=== PATIENT | female | born 1990 | race Caucasian/White ===

== ENCOUNTER 2024-01-07 03:08 | Inpatient (IN) | payer MEDICAID, SELFPAY ==
[2024-01-07] VITALS (94 sets, daily range): BP systolic 113–222; BP diastolic 63–133; PULSE 74–100; TEMP 35.5–36.7; BMI 33.0
--- NOTE | 2024-01-07 01:18 | USR_ITS ---
PROCEDURE INFORMATION: Exam: US , Limited Exam date and time: 01/07/2024 2:17 AM Age: 33 years old Clinical indication: Screening exam; Routine US, uterus; Additional info: No care, with chandra. LABS AND CLINICAL REPORTS: Last menstrual period start date: 03/25/2023 Gestational age (Established): 41 w 1 d Estimated due date (Established): 12/30/2023 TECHNIQUE: Imaging protocol: Real-time ultrasound of the maternal uterus with image documentation. Exam focused on the clinical indication. COMPARISON: No relevant prior studies available. FINDINGS: Gestation: Intrauterine gestation. The estimated age is 37 weeks 4 days with KATHRYN of 01/24/2024. heart rate: 148 bpm Placenta: The placenta is posterior. No evidence of abruption. Amniotic fluid index: CHANDRA is 17.58 cm. BIOMETRY: Estimated weight: 3014.92 g. EFW by AC, BPD, FL, HC, Hadlock 1985 Biparietal diameter (BPD): 9.11 cm. EGA (BPD) is 37 w 0 d Head circumference (HC): 34.41 cm. EGA (HC) is 39 w 5 d Abdominal circumference (AC): 31.55 cm. EGA (AC) is 35 w 3 d Femur length (FL): 7.4 cm. EGA (FL) is 37 w 6 d HC/AC: 1.09. (Normal range: 0.91 - 1.05) FL/HC: 21.51. (Normal range: 20.86 - 22.66) FL/BPD: 81.23. (Normal range: 71 - 87) FL/AC: 23.45. (Normal range: 20 - 24) Other findings: Vertex position. US/US OB limited [id number] IMPRESSION: Single full-term live IUP. No acute finding visualized.
[2024-01-07 01:47] LABS: Add Urine Microscopic? NO; Charge for UA Resulting for Rev
[2024-01-07 01:48] LABS: Bilirubin Urine Neg (Negative); Blood Urine Neg (Negative); Glucose Urine UA Norm (Normal); Ketones Urine Negative (Negative); Leukocyte Esterase Urine Negative (Negative); Nitrate Urine Negative (Negative); Protein Urine Neg (Negative); Urine Appearance Clear (CLEAR); Urine Color Yellow (Yellow); Urobilinogen Urine Neg (Negative); pH Urine 7 (5-7)
[2024-01-07 02:01] LABS: Amphetamines Screen Urine Negative (Negative); Barbiturates Screen Urine Negative (Negative); Benzodiazepines Screen Urine Negative (Negative); Cocaine Screen Urine Negative (Negative); Opiate Screen Urine Negative (Negative); PCP Screen Urine Negative (Negative); THC Screen Urine Negative (Negative)
[2024-01-07] MEDS: NIFEdipine 10 mg Capsule PO (02:01)
[2024-01-07 02:04] LABS: Alanine Aminotransferase 13 U/L (0-33); Albumin Level 3.3 g/dL (3.5-5.2); Alkaline Phosphatase 178 U/L (35-105); Blood Urea Nitrogen 12 mg/dL (6-20); Calcium 10.3 mg/dL (8.5-10.5); Carbon Dioxide 21 mmol/L (22-29); Chloride 102 mmol/L (98-107); Globulin 3.8 g/dL (1.3-4.6); Glomerular Filtration Rate 96.4 mL/min (90-130); Glucose 83 mg/dL (65-115); Osmolality Calculated 279 mOsm/kg (285-295); Sodium 135 mmol/L (136-145); Total Bilirubin 0.2 mg/dL (0.15-1.2); Total Protein 7.1 g/dL (6.6-8.7); Uric Acid 5.5 mg/dL (2.4-5.7)
[2024-01-07 02:05] LABS: Anion Gap 16.2 (5-19); Aspartate Amino Transferase 22 U/L (0-32); Potassium 4.2 mmol/L (3.5-5.1)
[2024-01-07 02:06] LABS: Basophils % 0.3 %; Eosinophils # 0.1 10^3/uL (0.0-0.8); Eosinophils % 0.7 %; Hematocrit 43.5 % (36-47); Lymphocytes # 1.8 10^3/uL (0.8-4.8); Lymphocytes % 14.4 %; Mean Corpuscular HGB Conc 33.6 g/dL (30-55); Mean Corpuscular Hemoglobin 31.7 pg (27-33); Mean Corpuscular Volume 94.4 fl (85-98); Mean Platelet Volume 10.7 fL (7.4-10.4); Monocytes # 0.7 10^3/uL (0.2-0.9); Monocytes % 5.6 %; Neutrophils # 9.83 10^3/uL (1.8-7.7); Neutrophils % 78.1 %; Nucleated Red Blood Cells % 0 %; Platelet Count 144 10^3/cmm (157-399); Red Blood Count 4.61 10^6/uL (3.85-5.65); Red Cell Distribution Width 14.7 % (12.1-15.1); White Blood Count 12.58 10^3/uL (3.29-11.43)
[2024-01-07 02:07] LABS: Urine Creatinine 34 mg/dL (28-217); Urine Protein Random 11 mg/dL
[2024-01-07 02:17] LABS: UPRO/UCREAT Ratio 0.32 mg/mg CR
[2024-01-07] MEDS: labetalol 5 mg/mL SDV 20mL 20 MG IVP (02:34)
[2024-01-07] MEDS: labetalol 5 mg/mL SDV 20mL 40 MG IVP (03:01)
[2024-01-07] MEDS: dextrose 5%-lactated ringers 1,000 ML 125 ML IV (04:02)
[2024-01-07] MEDS: magnesium sulfate premix 4 GM/100 ML PREMIX IV (04:02)
[2024-01-07] MEDS: ampicillin 2,000 MG in sodium chloride 0.9% (plus) 50 ML 100 MG IV (04:02)
[2024-01-07] MEDS: magnesium sulfate premix 20 GM/500 ML BAG IV ×2 (04:26→15:29)
[2024-01-07 05:05] LABS: HIV 1 & 2 Antibody Non-Reactive (Non-Reactiv); HIV 1 & 2 Antigen Non-Reactive (Non-Reactiv)
[2024-01-07 05:14] LABS: Rapid Plasma Reagin Syphilis Reactive (Nonreactive)
[2024-01-07 05:40] LABS: Hepatitis C Virus Antibody Reactive (Nonreactive)
[2024-01-07 06:15] LABS: Hepatitis B Surface Antigen Non-Reactive (Nonreactive)
--- NOTE | 2024-01-07 08:00 | PC.NURSE ---
This nurse called [facility] in [place], [place] to request records from previous . Released was signed by pt and faxed to [facility]. Charge nurse reported she would send records via fax. This nurse asked specifically about the patients previous section. The charge nurse reported the pt had a low transverse section on January 12, 2023 at 29 weeks gestation.
[2024-01-07] MEDS: ampicillin 1,000 MG in sodium chloride 0.9% (plus) 50 ML 100 MG IV ×5 (08:25→23:12)
[2024-01-07] MEDS: oxytocin 30 UNIT/500 ML BAG IV (08:30)
--- NOTE | 2024-01-07 09:58 | PM.OBGYHP ---
Providers/Chief Complaint Admitting Physician: Edy Light MD Chief Complaint: No PNC, Uncomfortable HPI DIRECTOR LEARNING History of Present Illness Brisa Pérez is a 33 year old female G2, P1, with an IUP with no care, referring she was feeling uncomfortable. She is unsure of her LMP referring late April early March. She had a previous delivery at 29 weeks last year due to severe preeclampsia of a also with no care. Upon evaluation in triage in labor and delivery the patient was noted with elevated blood pressures in the severe range. Preeclampsia workup confirms preeclampsia. Ultrasound performed reported the estimated age is 37 weeks 4 days with KATHRYN of 01/24/2024. Present Details : 2 Para: 1 Labs Rubella: Immune RPR: Positive GBS: Unknown Review of Systems Narrative: movement: no Const: Denies: fever(s) or chills Card: Denies: chest pain, palpitations, irregular heart rhythm or syncope Resp: Denies: dyspnea GI: Denies: abdominal pain, nausea or vomiting : Denies: flank pain, dysuria, urinary frequency or urinary urgency Musc: Denies: back pain or extremity swelling Skin/Breast: Denies: rash, pruritus, breast pain, nipple discharge or breast mass Neuro: Denies: headache(s), difficulty walking, dizziness or restless legs Psych: Denies: anxiety, depression or mood swings Endo: Denies: polyuria, tired all the time, cold intolerance or heat intolerance Jaime/Lymph: Denies: easy bruising, easy bleeding, petechiae or purpura All/Imm: Denies: urticaria Medications/Allergies Home Medications Medication Instructions Recorded Confirmed Last Taken Type 1 tab PO DAILY 01/07/24 01/07/24 01/06/24 21:00 History Allergies Allergy/AdvReac Type Severity Reaction Status Date / Time diphenhydramine Allergy ALGY-Hives Verified 01/07/24 02:38 [From Benadryl] Vitals/I&O/Wt Last Vital Signs Temp 95.9 F L 01/07/24 01:01 Pulse 84 01/07/24 09:45 BP 146/92 01/07/24 09:45 O2 Del Method Room Air 01/07/24 03:00 01/06/24 01/07/24 01/07/24 22:59 06:59 14:59 Intake Total 75 / 75 150 / 150 Output Total 820 / 820 800 / 800 Balance -745 / -745 -650 / -650 Weight last 48 hrs Weight 79.379 kg Weight 79.379 kg Physical Exam Narrative: GA: Alert and oriented ?3. Lungs: Clear to auscultation bilaterally. Heart: Regular rhythm and rate. Abdomen: Gravid, full the height equals dates, nontender. LIDAR SCIENTIST: SVE; dilation: 0 cm, effacement: 0%, station: -4, presentation: vx, membranes: IM. Extremities: no edema, no cyanosis, no calves pain. heart tracing: Basal rate: 140's bpm, Variability: moderate, Accelerations: present, Decelerations: absent, Contraction: none. Urinary Catheter Management: Nair Latex Free: Cath Placed During This Visit: yes Reason for Continuing Indwelling Catheter: Accurate Measurement of Urinary Output in Critically Ill Patients Urinary Catheter Date of Insertion: 01/07/24 Urinary Catheter Time of Insertion: 03:20 Data 01/07/24 01:58 01/07/24 01:39 Results Labs OB ([facility]): Obstetrics US 01/07/24 Blood Type A Positive 01/07/24 Antibody Screen Negative 01/07/24 Hct 43.5 % (36-47) 01/07/24 Hgb 14.60 g/dL (11.27-16.99) 01/07/24 Rho(D) Type Rh positive 01/07/24 Plt Count 144 10^3/cmm (157-399) L 01/07/24 Hep Bs Antigen Non-reactive (Nonreactive) 01/07/24 Hepatitis C Antibody Reactive (Nonreactive) H 01/07/24 Rubella IgG Antibody 6.0 IU/mL (0.0-10.0) 01/07/24 RPR Reactive (Nonreactive) 01/07/24 HIV 1&2 Ab & HIV 1 Ag Non-reactive (Non-Reactiv) 01/07/24 C.trachomatis RNA (TMA) Pending 01/07/24 N.gonorrhoeae RNA (TMA) Pending 01/07/24 Chlamydia/GC Comment Pending 01/07/24 Uric Acid 5.5 mg/dL (2.4-5.7) 01/07/24 Urine Opiates Screen Negative ng/mL (Negative) 01/07/24 Ur Barbiturates Screen Negative ng/mL (Negative) 01/07/24 Ur Phencyclidine Scrn Negative ng/mL (Negative) 01/07/24 Ur Amphetamines Screen Negative ng/mL (Negative) 01/07/24 U Benzodiazepines Scrn Negative ng/mL (Negative) 01/07/24 Urine Cocaine Screen Negative ng/mL (Negative) 01/07/24 U Marijuana (THC) Screen Negative ng/mL (Negative) 01/07/24 OB Ul[address] [address] Ultrasound Report Signed Patient: Brisa Pérez Unit #: [id number] : 1990 Age/Sex: 33 / F ADM Date: 01/07/24 [facility] Attending Dr: Edy Light MD Ordering Provider/Ordering MD: Edy Light MD Date of Service: 01/07/24 Procedure(s): US OB limited [id number] Accession Number(s): [id number] Report Number: [id number] PROCEDURE INFORMATION: Exam: US , Limited Exam date and time: 01/07/2024 2:17 AM Age: 33 years old Clinical indication: Screening exam; Routine US, uterus; Additional info: No care, with chandra. LABS AND CLINICAL REPORTS: Last menstrual period start date: 03/25/2023 Gestational age (Established): 41 w 1 d Estimated due date (Established): 12/30/2023 TECHNIQUE: Imaging protocol: Real-time ultrasound of the maternal uterus with image documentation. Exam focused on the clinical indication. COMPARISON: No relevant prior studies available. FINDINGS: Gestation: Intrauterine gestation. The estimated age is 37 weeks 4 days with KATHRYN of 01/24/2024. heart rate: 148 bpm Placenta: The placenta is posterior. No evidence of abruption. Amniotic fluid index: CHANDRA is 17.58 cm. BIOMETRY: Estimated weight: 3014.92 g. EFW by AC, BPD, FL, HC, Hadlock 1985 Biparietal diameter (BPD): 9.11 cm. EGA (BPD) is 37 w 0 d Head circumference (HC): 34.41 cm. EGA (HC) is 39 w 5 d Abdominal circumference (AC): 31.55 cm. EGA (AC) is 35 w 3 d Femur length (FL): 7.4 cm. EGA (FL) is 37 w 6 d HC/AC: 1.09. (Normal range: 0.91 - 1.05) FL/HC: 21.51. (Normal range: 20.86 - 22.66) FL/BPD: 81.23. (Normal range: 71 - 87) FL/AC: 23.45. (Normal range: 20 - 24) Other findings: Vertex position. US/ OB limited 12551 IMPRESSION: Single full-term live IUP. No acute finding visualized. Dictated By: Erasmo Burgos MD A&P Assessment and plan (1) No care in current in third trimester: Mrs. Pérez 33-year-old female G2, P1 at approximately 37 weeks 4 days IUP, with severe preeclampsia, hep C and no care. Admitted for induction. heart tracing category 1. Started induction with oxytocin low-dose protocol. Started GBS prophylaxis. Plan to place the double-balloon for cervical dilation as soon it is viable. (2) Pre-eclampsia in third trimester: Patient came to labor and delivery noted to be in severe range preeclampsia. Started on magnesium sulfate for seizure prophylaxis. Treated with labetalol per protocol. (3) History of delivery, currently : The patient refers she does not want to have a repeat delivery. Last delivery was 12 months ago. The patient was counseled about TOLAC/. She wants to try a TOLAC. The decision to have a TOLAC/ is her desicion, and the option of an elective repeat has been discussed with the patient. The risk of a uterine rupture during a TOLAC/ in someone who has had a prior incision on the lower, noncontracting part of my uterus, is around 1%. That vaginal after () is associated with a higher risk of harm to the baby than to the patient. She was informed that if the uterus ruptures during a TOLAC/, there may not be sufficient time to operate and to prevent the of or permanent brain injury to the baby. However a carries a lower risk to patient than does a delivery. (4) Hepatitis C virus infection in mother during : Attestations Medical Necessity Statement*: In my professional opinion per admitting diagnosis. Coding Level of Care Code Acute Code for Chg Fwd Diagnoses No care in current in third trimester O09.33 Pre-eclampsia in third trimester O14.93 History of delivery, currently O34.219 Hepatitis C virus infection in mother during O98.419; B19.20
[2024-01-07 10:40] LABS: Magnesium Level (OB Only) 4.3 mg/dL (5.0-7.5)
--- NOTE | 2024-01-07 10:41 | PC.NURSE ---
Dr. Light have verbal orders to only call if magnesium level is greater then 8.
[2024-01-07] MEDS: acetaminophen 325 mg Tablet 650 MG PO (13:05)
[2024-01-07 16:38] LABS: Magnesium Level (OB Only) 2.7 mg/dL (5.0-7.5)
[2024-01-07 17:33] LABS: Magnesium Level (OB Only) 5.1 mg/dL (5.0-7.5)
[2024-01-07] MEDS: acetaminophen 500 mg Tablet 1000 MG PO (17:48)
--- NOTE | 2024-01-07 18:14 | PC.NURSE ---
suspected diluted sample. New sample was collected and results were WNL
[2024-01-07] MEDS: ondansetron 2 mg/ML SDV 2 mL 4 MG IVP (18:22)
[2024-01-07] MEDS: dextrose 5%-lactated ringers 1,000 ML 75 ML IV (19:43)
[2024-01-07 22:27] LABS: Magnesium Level (OB Only) 5.4 mg/dL (5.0-7.5)
[2024-01-08] VITALS (118 sets, daily range): BP systolic 128–172; BP diastolic 61–103; PULSE 71–103; TEMP 36.8–42.2; O2SAT 83–100
[2024-01-08] MEDS: acetaminophen 325 mg Tablet 650 MG PO ×4 (00:05→18:36)
[2024-01-08] MEDS: ondansetron 2 mg/ML SDV 2 mL 4 MG IVP ×4 (00:08→18:35)
[2024-01-08] MEDS: magnesium sulfate premix 20 GM/500 ML BAG IV ×3 (01:35→20:08)
[2024-01-08 04:20] LABS: Magnesium Level (OB Only) 5.9 mg/dL (5.0-7.5)
[2024-01-08] MEDS: ampicillin 1,000 MG in sodium chloride 0.9% (plus) 50 ML 100 MG IV ×4 (06:34→18:36)
[2024-01-08] MEDS: oxytocin 30 UNIT/500 ML BAG 10 UNIT IV (08:15)
[2024-01-08] MEDS: dextrose 5%-lactated ringers 1,000 ML 115 ML IV (08:41)
--- NOTE | 2024-01-08 09:36 | PC.NURSE ---
This nurse attempted to draw magnesium level from both peripheral IVs without success at 0900. JOSE Melchor, also attempted to draw without success. This nurse stuck patient twice without success. This nurse called lab for assistance at 0935.
[2024-01-08 10:19] LABS: Magnesium Level (OB Only) 6.1 mg/dL (5.0-7.5)
--- NOTE | 2024-01-08 12:40 | PC.NURSE ---
Patient requested medication for headache. Pt was given two tablets of Tylenol. After swallowing both tablets, patient became sick and vomited. One tablet was visualized in the basin by this nurse. Zofran was administered and one additional tablet of Tylenol was given to patient.
[2024-01-08] MEDS: labetalol 5 mg/mL SDV 20mL 20 MG IVP (13:07)
--- NOTE | 2024-01-08 13:38 | PC.NURSE ---
Temperature taken with temporal artery scanner. First attempt resulted in error. Second attempt resulted in 108.0. This nurse took temperature orally with result of 98.3.
--- NOTE | 2024-01-08 15:42 | PC.NURSE ---
This nurse called lab to request them to draw patient's magnesium level.
--- NOTE | 2024-01-08 16:32 | PC.NURSE ---
This nurse called lab again to come draw magnesium.
--- NOTE | 2024-01-08 18:20 | PC.NURSE ---
Dr Silva notified of critical magnesium level 6.3 called to RN. pt is receiving mag sulfate for pre eclampsia. per Dr Silva 6.3 is WNL for therapy, no new orders received
[2024-01-08 18:56] LABS: Magnesium Level (OB Only) 6.3 mg/dL (5.0-7.5)
--- NOTE | 2024-01-08 19:05 | PM.OBGYPN ---
FOOD SERVICE COORDINATOR Subjective Subjective: Interval history: 33 y.o. Patient with no care At approximately 37 weeks by ultrasound done yesterday on admission h/o previous low-transverse at 29 weeks for severe preeclampsia admitted yesterday with significantly elevated BPs on Pitocin for induction of labor presently c/o severe headache on MgSO4 2 gms/h BPs in 150-160 / 95-105 range Cervix: closed / long Patient with preeclampsia with severe features Cervix remote from delivery h/o previous would recommend repeat now for delivery I discussed my recommendation, along with procedure and risks of surgery, with patient and her Risks include, but not limited to, infection, bleeding, injury to internal organs, anesthesia, blood transfusions patient understands and wants to proceed plan proceed to for delivery Labor: Station: -3 Amniotic Membrane Status: Intact Monitor Mode: Palpation Contraction Pattern: Irregular Vitals/I&O/Wt Last Vital Signs Temp 98.2 F 01/09/24 05:24 Pulse 75 01/09/24 06:43 Resp 16 01/09/24 05:24 BP 135/85 01/09/24 06:28 Pulse Ox 99 01/09/24 06:43 O2 Del Method Room Air 01/09/24 05:24 01/08/24 01/08/24 01/09/24 14:59 22:59 06:59 Intake Total 1977.082 / 1862.881 3456.734 / 3395.816 2226.433 / 5622.249 Output Total 1750 / 1750 675 / 2425 1305 / 3730 Balance 228.082 / 228.082 742.734 / 970.816 921.433 / 1892.249 Physical Exam Urinary Catheter Management: Nair Latex Free: Cath Placed During This Visit: yes Reason for Continuing Indwelling Catheter: Accurate Measurement of Urinary Output in Critically Ill Patients Urinary Catheter Date of Insertion: 01/07/24 Urinary Catheter Time of Insertion: 03:20 Data 01/08/24 21:45 01/07/24 01:39 A&P Assessment and plan (1) No care in current in third trimester: (2) Pre-eclampsia in third trimester: (3) History of delivery, currently : (4) Hepatitis C virus infection in mother during : Attestations Medical Necessity Statement*: patient with preeclampsia with severe features, plan proceed to for delivery Coding Level of Care Code Acute Code for Chg Fwd Diagnoses No care in current in third trimester O09.33 Pre-eclampsia in third trimester O14.93 History of delivery, currently O34.219 Hepatitis C virus infection in mother during O98.419; B19.20 Time Spent (min) 60
[2024-01-08] MEDS: dextrose 5%-lactated ringers 1,000 ML 94 ML IV ×2 (19:38→23:13)
--- NOTE | 2024-01-08 20:00 | P.ANESASSM_ITS ---
Pre-Anesthetic Assessment Height/Weight: Height 1.55 m Weight 79.379 kg Temp Pulse BP O2 Del Method 98.3 F 85 141/82 Room Air 01/08/24 13:37 01/08/24 19:54 01/08/24 19:54 01/07/24 03:00 Preop Diagnosis: IUP Operation Date: 01/08/24 20:40 Proposed Procedures p Section Repeat(Not Applicable) - Triston Silva MD Familial anesthetic complications: none Was Beta Heriberto taken within 24 hours: N/A Was Clonidine taken within 24 hours: N/A Social Tobacco and No alcohol .5-1 ppd pack(s) per day Exam alert and oriented x 3 Airway Submandibular: within normal limits Cervical ROM: within normal limits Mallampati: Class I Dentition: full Comments: Comments: poor dentition-pt reports none are loose Pulmonary None reported CV/HEM Hypertension (160s, not on daily medications. HTN with as well.) None reported Hepatic Hepatitis (hep C) GI Gastroesophageal Reflux Disease [facility] None reported Neuropsych None reported Anesthetic Plan ASA status: 3 Anesthesia: Anesthesia Evaluation and Regional (specify below) Other: spinal Risk of > 500 ml blood loss (7ml/kg in children): Yes, adequate IV access and fluids planned Medications/Allergies Home Medications Medication Instructions Recorded Confirmed Last Taken Type 1 tab PO DAILY 01/07/24 01/07/24 01/06/24 21:00 History Allergies Allergy/AdvReac Type Severity Reaction Status Date / Time diphenhydramine Allergy ALGY-Hives Verified 01/07/24 02:38 [From Benadryl] Current Medications Generic Name Dose Route Start Last Admin Trade Name Howardq PRN Reason Stop Dose Admin Acetaminophen 650 mg 01/07/24 02:58 01/08/24 18:36 Acetaminophen 325 Mg Tablet PO 650 mg Q6H PRN Administration Mild pain or temp > 100.4 Magnesium Sulfate 20 gm in 500 mls @ 50 mls/hr 01/07/24 03:00 01/08/24 20:08 Magnesium Sulfate Premix IV 50 mls/hr .Q10H DIANE Administration Dextrose/Lactated Ringer's 1,000 mls @ 125 mls/hr 01/07/24 03:00 01/08/24 19:38 Dextrose 5%-Lactated Ringers IV 94 mls/hr .Q8H DIANE Administration Ampicillin Sodium 1,000 mg/ 50 mls @ 100 mls/hr 01/07/24 07:00 01/08/24 20:09 Sodium Chloride IV Infused Q4H DIANE Infusion Protocol Oxytocin 30 unit in 500 mls @ 1 mls/hr 01/08/24 08:15 01/08/24 18:45 Pitocin IV 32 milliunit/min .Q24H DIANE 32 mls/hr Titration Protocol 1 MILLIUNIT/MIN Labetalol HCl 20 mg 01/07/24 01:43 01/08/24 13:07 Labetalol 5 Mg/Ml Sdv 20ml IVP 20 mg PRN PRN Administration HYPERTENSION Protocol Labetalol HCl 40 mg 01/07/24 01:43 01/07/24 03:01 Labetalol 5 Mg/Ml Sdv 20ml IVP 40 mg PRN PRN Administration HYPERTENSION Protocol Nifedipine 10 mg 01/07/24 01:43 01/07/24 02:01 Nifedipine 10 Mg Capsule PO 10 mg PRN PRN Administration HYPERTENSION Ondansetron HCl 4 mg 01/07/24 02:58 01/08/24 18:35 Ondansetron 2 Mg/Ml Sdv 2 Ml IVP 4 mg Q4H PRN Administration NAUSEA AND VOMITING PFSH Anesthesia Female Reproductive History : 2 Data Anesthesia 01/07/24 01:58 01/07/24 01:39 Short CBC 01/07/24 Range/Units 01:58 WBC 12.58 H (3.29-11.43) 10^3/uL Hgb 14.60 (11.27-16.99) g/dL Hct 43.5 (36-47) % MCV 94.4 (85-98) fl Plt Count 144 L (157-399) 10^3/cmm Neut % (Auto) 78.1 % Neut # (Auto) 9.83 H (1.8-7.7) 10^3/uL BMP 01/07/24 01:39 Sodium 135 L Potassium 4.2 Chloride 102 Carbon Dioxide 21 L BUN 12 Creatinine 0.7 Glucose 83 Calcium 10.3 Liver Function 01/07/24 Range/Units 01:39 Total Bilirubin 0.2 (0.15-1.2) mg/dL AST 22 (0-32) U/L ALT 13 (0-33) U/L Alkaline Phosphatase 178 H (35-105) U/L Albumin 3.3 L (3.5-5.2) g/dL Urine 01/07/24 Range/Units 01:39 Urine Color Yellow (Yellow) Urine Appearance Clear (CLEAR) Urine pH 7 (5-7) Ur Specific [place] 1.000 L (1.005-1.030) Urine Protein Neg (Negative) Urine Glucose (UA) Norm (Normal) Urine Ketones Negative (Negative) Urine Nitrate Negative (Negative) Urine Bilirubin Neg (Negative) Ur Leukocyte Esterase Negative (Negative) Blood Bank 01/07/24 01:58 Blood Type A Positive Rho(D) Type Rh positive Antibody Screen Negative Cardiac Studies: 2 No Data to Display
[2024-01-08] MEDS: metoclopramide 5 mg/mL SDV 2 mL 10 MG IVP (20:04)
[2024-01-08] MEDS: famotidine 20 mg/2 mL INJ IVP (20:04)
[2024-01-08] MEDS: citric acid-sodium citrate 30 mL UDC PO (20:04)
--- NOTE | 2024-01-08 21:15 | PM.OP ---
Operative Report Date of procedure: January 08, 2024 Pre-op diagnosis: No care Approximately 37 weeks gestation Previous Preeclampsia with severe features Cervix long and closed, remote from delivery Post-op diagnosis: Same as above Partial dehiscence of previous scar evident Bulging membranes seen at site of previous Post-op findings: 6 cm defect of scar seen at opening of abdomen With membranes bulging through previous scar Vigorous female Normal placenta and cord Normal uterus, tubes, and ovaries Bleeding sinus in posterior wall of uterus, repaired Procedure done: Repeat low-transverse Implants: none Specimens removed/disposition: placenta and cord, discarded Surgeon: Triston Silva MD Anesthesia: Spinal Estimated blood loss (mL): 1,800 Complications: none Condition: stable Disposition: floor Brief History: No care Approximately 37 weeks gestation Previous Preeclampsia with severe features Cervix long and closed, remote from delivery Procedure: Informed consent signed. Patient was taken to the operating room, placed supine in the left lateral tilt position. Spinal anesthesia and a Nair catheter were already placed. The abdomen was prepped and draped in the usual sterile fashion. A Pfannenstiel incision was made over an old scar and carried down through skin and subcutaneous tissue and fascia. The fascial incision was extended laterally with Pang scissors. The fascia was from the underlying rectus muscles. The rectus muscles were split in the midline. The peritoneum was entered bluntly avoiding underlying organs. On entering the peritoneal cavity, a 6 cm defect in the previous c-s scar can be seen with bulging membranes. The low transverse uterine opening was extended manually. Clear amniotic fluid was seen. The baby was delivered in cephalic presentation atraumatically. The baby was suctioned. The cord was clamped and cut and the baby was handed to an awaiting watch and clock maker and repairer. Cord blood was obtained. The placenta was manually removed intact. A bleeding sinus can be seen on the posterior wall of the uterus with brisk bleeding noted. Bleeding was controlled using a figure of 8 stitch of O-chromic. The uterine cavity was bluntly curetted with wet laps. The uterine incision was then closed with a continuous interlocking stitich of O chromic. Adequate hemostasis was seen. No bleeding was seen. The uterine incision was again inspected and found to have good hemostasis. The fascia was then closed with a continuous stitch of O-Vicryl. Additional interrupted stitches of O-Vicryl were used for fascial closure. The subcutaneous tissue was irrigated and inspected for hemostasis. The skin was then reapproximated using Insorb sarah. Postoperative condition stable Disposition to recovery room Estimated blood loss 1,800 cc, no replacement Sponge, needle, and instrument counts were correct x two There were no complications
[2024-01-08] MEDS: carboprost tromethamine 250 mcg/mL Amp IM (21:35)
[2024-01-08 21:57] LABS: Hematocrit 33.6 % (36-47); Mean Corpuscular HGB Conc 32.7 g/dL (30-55); Mean Corpuscular Hemoglobin 31.3 pg (27-33); Mean Corpuscular Volume 95.7 fl (85-98); Mean Platelet Volume 10.7 fL (7.4-10.4); Platelet Count 143 10^3/cmm (157-399); Red Blood Count 3.51 10^6/uL (3.85-5.65); Red Cell Distribution Width 15.1 % (12.1-15.1); White Blood Count 10.11 10^3/uL (3.29-11.43)
[2024-01-08] MEDS: oxytocin 30 UNIT/500 ML BAG 32 UNIT IV (23:13)
[2024-01-09] VITALS (230 sets, daily range): BP systolic 128–155; BP diastolic 76–99; PULSE 67–96; RESP 16; TEMP 36.1–37.1; O2SAT 92–100
[2024-01-09] MEDS: ketorolac 30 mg/mL INJ IVP ×3 (04:01→16:07)
[2024-01-09] MEDS: simethicone 80 mg Chew PO ×2 (04:01→22:15)
--- NOTE | 2024-01-09 04:57 | PC.NURSE ---
01/07/242099-MD GAVE ORDERS TO INCREASE PITOCIN LIMIT OF 20 UP TO 35. DID NOT INCREASE AT THIS TIME DUE TO CONTRACTIONS IN SETS OF 3 AND 4 WITHOUT A GOOD BASELINE RETURN, NO RESTING TONE INBETWEEN CONTRACTIONS 2129-INCREASED PITOCIN TO 21 2199-HELD PITOCIN AT 21,DUE TO VARRIABILITY BEING NEAR MINIMAL AND CONTRACTION PATTERN CONTINUING BEFORE 2229-WENT TO INCREASE PITOCIN DUE TO STRIP IMPROVEMENT AND START AMPICILLIN,WHILE GRABBING SUPPLIES TO DO SO DR CRUZ ARRIVED TO UNIT AND OBSERVED PITOCIN AT 21. OPON OBSERVING THIS HE ORDERED PITOCIN TO BE SHUT OFF. PITOCIN INFUSION WAS THEN STOPPED.
[2024-01-09 09:00] LABS: Hematocrit 32.2 % (36-47); Mean Corpuscular HGB Conc 32.9 g/dL (30-55); Mean Corpuscular Hemoglobin 31.8 pg (27-33); Mean Corpuscular Volume 96.7 fl (85-98); Mean Platelet Volume 11.2 fL (7.4-10.4); Platelet Count 80 10^3/cmm (157-399); Red Blood Count 3.33 10^6/uL (3.85-5.65); Red Cell Distribution Width 15.1 % (12.1-15.1); White Blood Count 7.69 10^3/uL (3.29-11.43)
[2024-01-09] MEDS: PRENATAL VIT NO.130/IRON/FOLIC 1 EACH TABLET PO (10:06)
[2024-01-09] MEDS: ferrous sulfate EC 325 mg Tablet PO ×2 (10:06→18:21)
[2024-01-09] MEDS: docusate sodium 100 mg Capsule PO ×2 (10:06→18:21)
[2024-01-09] MEDS: magnesium sulfate premix 20 GM/500 ML BAG IV (11:44)
[2024-01-09 11:50] LABS: RPR w(Moniotor) w/REFL Titer REACTIVE (NON-REACTIVE)
--- NOTE | 2024-01-09 15:35 | P.PN_ITS ---
ELECTRONIC TECHNICIAN Subjective 2 Subjective: Interval history: Feels tired Mild incisional pain No bleeding No nausea, vomiting No headaches, blurry vision Labor: Station: -3 Amniotic Membrane Status: Intact Monitor Mode: Palpation Contraction Pattern: Irregular Vitals/I&O/Wt Last Vital Signs Temp 98.2 F 01/10/24 20:39 Pulse 85 01/11/24 02:03 Resp 16 01/10/24 20:39 BP 156/92 01/11/24 02:03 Pulse Ox 98 01/10/24 20:39 O2 Del Method Room Air 01/10/24 20:39 Physical Exam 2 Narrative: Comfortable, awake, alert, appropriate Afebrile BPs Lungs: clear Cor: RRR Abd: soft, nontender Wound clean and dry Ext: no edema Urinary Catheter Management: Nair Latex Free: Cath Placed During This Visit: yes, but has since been removed by the nurse Reason for Continuing Indwelling Catheter: Decision to DC Catheter Urinary Catheter Date of Insertion: 01/07/24 Urinary Catheter Time of Insertion: 03:20 Date Urinary Catheter Removed: 01/09/24 Time Urinary Catheter Discontinued: 21:57 Data 01/09/24 20:10 01/07/24 01:39 A&P Assessment and plan (1) S/P : POD #1 s/p repeat for No care Approximately 37 weeks gestation Preeclampsia with severe features previous cervix remote from delivery Continue postop and care (2) Hypertension: Patient?s BPs are labile, which is to be expected in the setting of severe preeclampsia Patient is otherwise asymptomatic. No c/o headaches, blurry vision, swelling Patient on Procardia 30 mg XL one PO BID Can discontinue MgSO4 Continue to follow clinically Attestations 2 Medical Necessity Statement*: patient s/p , for postop care Coding Level of Care Code Acute Code for Chg Fwd Diagnoses S/P Z98.891 Hypertension I10 Time Spent (min) 30
--- NOTE | 2024-01-09 16:32 | PC.NURSE ---
Dr. Silva at bedside. Orders given to d/c magnesium and d/c pike. Pt may have regular diet. Keep IV saline lock; redraw CBC at 1999.
[2024-01-09 18:00] LABS: Chlamydia Trachomatis RNA TMA NOT DETECTED (NOT DETECTED); Neisseria Gonorrhoeae RNA, TMA NOT DETECTED (NOT DETECTED)
[2024-01-09 20:38] LABS: Basophils % 0.4 %; Eosinophils # 0.1 10^3/uL (0.0-0.8); Eosinophils % 0.7 %; Hematocrit 29.7 % (36-47); Lymphocytes # 1.1 10^3/uL (0.8-4.8); Lymphocytes % 13.7 %; Mean Corpuscular HGB Conc 32.7 g/dL (30-55); Mean Corpuscular Hemoglobin 31.6 pg (27-33); Mean Corpuscular Volume 96.7 fl (85-98); Mean Platelet Volume 10.5 fL (7.4-10.4); Monocytes # 0.5 10^3/uL (0.2-0.9); Monocytes % 6.7 %; Neutrophils # 6.33 10^3/uL (1.8-7.7); Nucleated Red Blood Cells % 0 %; Platelet Count 152 10^3/cmm (157-399); Red Blood Count 3.07 10^6/uL (3.85-5.65); Red Cell Distribution Width 15.2 % (12.1-15.1); White Blood Count 8.11 10^3/uL (3.29-11.43)
[2024-01-09] MEDS: HYDROcodone-acetaminophen 5-325 mg Tablet PO (22:21)
[2024-01-10] VITALS (24 sets, daily range): BP systolic 132–198; BP diastolic 81–105; PULSE 75–98; RESP 16–18; TEMP 36.8–36.9; O2SAT 98
[2024-01-10] MEDS: HYDROcodone-acetaminophen 5-325 mg Tablet PO ×4 (03:17→16:11)
[2024-01-10] MEDS: labetalol 5 mg/mL SDV 20mL 20 MG IVP (04:48)
[2024-01-10] MEDS: NIFEdipine ER (24 hr) 30 mg Tablet PO ×2 (06:22→17:29)
[2024-01-10] MEDS: ferrous sulfate EC 325 mg Tablet PO ×2 (07:18→16:10)
[2024-01-10] MEDS: PRENATAL VIT NO.130/IRON/FOLIC 1 EACH TABLET PO (07:18)
[2024-01-10] MEDS: docusate sodium 100 mg Capsule PO ×2 (07:19→16:10)
[2024-01-10] MEDS: ibuprofen 800 mg tablet PO ×3 (07:19→20:44)
[2024-01-10 13:25] LABS: HEP C RNA Viral Load Quant <1.18 NOT DETECTED Log IU/mL (NOT DETECTED); HEP C RNA Viral Load Quant <15 NOT DETECTED IU/mL (NOT DETECTED)
--- NOTE | 2024-01-10 17:05 | P.PN_ITS ---
REGIONAL MARKETING MANAGER Subjective 2 Subjective: Interval history: No c/o Mild incisional pain No bleeding Eating, voiding, ambulating well No nausea, vomiting No headaches, blurry vision Labor: Station: -3 Amniotic Membrane Status: Intact Monitor Mode: Palpation Contraction Pattern: Irregular Vitals/I&O/Wt Last Vital Signs Temp 98.2 F 01/10/24 20:39 Pulse 85 01/11/24 02:03 Resp 16 01/10/24 20:39 BP 156/92 01/11/24 02:03 Pulse Ox 98 01/10/24 20:39 O2 Del Method Room Air 01/10/24 20:39 Physical Exam 2 Narrative: Comfortable, awake, alert, appropriate Afebrile BPs Lungs: clear Cor: RRR Abd: soft, nontender Wound clean and dry Ext: no edema Urinary Catheter Management: Nair Latex Free: Cath Placed During This Visit: yes, but has since been removed by the nurse Reason for Continuing Indwelling Catheter: Decision to DC Catheter Urinary Catheter Date of Insertion: 01/07/24 Urinary Catheter Time of Insertion: 03:20 Date Urinary Catheter Removed: 01/09/24 Time Urinary Catheter Discontinued: 21:57 Data 01/09/24 20:10 01/07/24 01:39 A&P Assessment and plan (1) S/P : POD #2 s/p repeat for Continue postop and care (2) Hypertension: Patient?s BPs are labile, which is to be expected in the setting of severe preeclampsia Patient is otherwise asymptomatic. No c/o headaches, blurry vision, swelling Patient on Procardia 30 mg XL one PO BID Continue to follow clinically Attestations 2 Medical Necessity Statement*: patient s/p , for postop and care Coding Level of Care Code Acute Code for Chg Fwd Diagnoses S/P Z98.891 Hypertension I10 Time Spent (min) 30
[2024-01-11] VITALS (14 sets, daily range): BP systolic 140–175; BP diastolic 80–106; PULSE 72–110; RESP 16; TEMP 36.7–37.2; O2SAT 97
--- NOTE | 2024-01-11 01:39 | PC.NURSE ---
This nurse placed call to Dr. Silva 01/10/24 at 4 to notify of severe pressures. Orders recieved to monitor every 4 hours. Due to severe pressures this nurse will be monitoring pressures q 15 min until severes resolve. Dr. Silva did not order any new medications at this time as patient had received pericardia xl at 1700.
--- NOTE | 2024-01-11 01:50 | P.PN_ITS ---
COMPANY MARKER Subjective 2 Subjective: Interval history: Called for elevated BPs Patient with labile BPs No c/o headache, blurry vision, abdominal pain, swelling No bleeding states feels well eating, voiding, ambulating Labor: Station: -3 Amniotic Membrane Status: Intact Monitor Mode: Palpation Contraction Pattern: Irregular Vitals/I&O/Wt Last Vital Signs Temp 98.2 F 01/10/24 20:39 Pulse 85 01/11/24 02:03 Resp 16 01/10/24 20:39 BP 156/92 01/11/24 02:03 Pulse Ox 98 01/10/24 20:39 O2 Del Method Room Air 01/10/24 20:39 Physical Exam 2 Narrative: Comfortable, awake, alert HEENT: normal Lungs: clear Cor: RRR Abd: soft, nontender Ext: no edema Urinary Catheter Management: Nair Latex Free: Cath Placed During This Visit: yes, but has since been removed by the nurse Reason for Continuing Indwelling Catheter: Decision to DC Catheter Urinary Catheter Date of Insertion: 01/07/24 Urinary Catheter Time of Insertion: 03:20 Date Urinary Catheter Removed: 01/09/24 Time Urinary Catheter Discontinued: 21:57 Data 01/09/24 20:10 01/07/24 01:39 A&P Assessment and plan (1) S/P : POD #3 s/p repeat (2) Hypertension: Patient?s BPs are labile, which is to be expected in the setting of severe preeclampsia Patient is otherwise asymptomatic. No c/o headaches, blurry vision, swelling Patient on Procardia 30 mg XL one PO BID Will add metoprolol 25 mg PO BID Will recheck CBC with platelets in the morning Continue to follow clinically Attestations 2 Medical Necessity Statement*: patient s/p , severe preeclampsia, hypertension, for postop and care Coding Level of Care Code Acute Code for Chg Fwd Diagnoses S/P Z98.891 Hypertension I10 Time Spent (min) 60
[2024-01-11] MEDS: acetaminophen 325 mg Tablet 650 MG PO (02:14)
[2024-01-11] MEDS: HYDROcodone-acetaminophen 5-325 mg Tablet PO ×2 (08:07→17:29)
[2024-01-11] MEDS: PRENATAL VIT NO.130/IRON/FOLIC 1 EACH TABLET PO (08:07)
[2024-01-11] MEDS: ferrous sulfate EC 325 mg Tablet PO ×2 (08:07→17:29)
[2024-01-11] MEDS: NIFEdipine ER (24 hr) 30 mg Tablet PO ×2 (08:07→17:31)
[2024-01-11] MEDS: docusate sodium 100 mg Capsule PO ×2 (08:08→17:29)
[2024-01-11] MEDS: metoprolol tartrate 25 mg Tablet PO ×2 (08:08→17:32)
[2024-01-11] MEDS: ibuprofen 800 mg tablet PO ×2 (08:09→16:14)
[2024-01-11] MEDS: penicillin g (L-A) 1,200,000 unit/2 mL Syr 2400000 UNIT IM (10:31)
--- NOTE | 2024-01-11 12:40 | PM.OBGYPN ---
RETURNED TELEPHONE EQUIPMENT APPRAISER Subjective Subjective: Interval history: No c/o Mild incisional pain, relieved with pain meds No bleeding Eating, voiding, ambulating well No nausea, vomiting No headaches, blurry vision Labor: Station: -3 Amniotic Membrane Status: Intact Monitor Mode: Palpation Contraction Pattern: Irregular Vitals/I&O/Wt Last Vital Signs Temp 98.1 F 01/11/24 17:35 Pulse 110 H 01/11/24 17:35 Resp 16 01/11/24 17:35 BP 156/101 01/11/24 17:35 Pulse Ox 97 01/11/24 04:00 O2 Del Method Room Air 01/11/24 04:00 Physical Exam Narrative: Comfortable, awake, alert, appropriate Afebrile BPs Lungs: clear Cor: RRR Abd: soft, nontender Wound healing well Ext: no edema Urinary Catheter Management: Nair Latex Free: Cath Placed During This Visit: yes, but has since been removed by the nurse Reason for Continuing Indwelling Catheter: Decision to DC Catheter Urinary Catheter Date of Insertion: 01/07/24 Urinary Catheter Time of Insertion: 03:20 Date Urinary Catheter Removed: 01/09/24 Time Urinary Catheter Discontinued: 21:57 Data 01/09/24 20:10 01/07/24 01:39 A&P Assessment and plan (1) S/P : POD #3 s/p repeat Doing well Plan discharge to home today instructions and precautions given call/return if fever, chills, nausea, vomiting, headaches, abdominal pain, bleeding, inability to void, swelling, leg pain; feelings of depression or mood changes; wound redness, swelling, or discharge f/u in January 16, 2024 (2) Hypertension: Patient?s BPs are labile, which is to be expected in the setting of severe preeclampsia Patient may also have undiagnosed chronic hypertension Patient is otherwise asymptomatic. No c/o headaches, blurry vision, swelling Patient on Procardia 30 mg XL one PO BID Plan discharge on Procardia and metoprolol Continue to follow clinically Return to clinic for BP check on January 16, 2024 Attestations Medical Necessity Statement*: patient s/p , plan to discharge to home today Coding Level of Care Code Acute Code for Chg Fwd Diagnoses S/P Z98.891 Hypertension I10 Time Spent (min) 40
--- NOTE | 2024-01-11 13:40 | PM.OBGYDC ---
Discharge Providers SHREDDER PICKER Date of Admission: 01/07/24 03:08 Date of Discharge: 01/11/24 Attending Provider at Admission: Edy Light MD Attending Provider at Discharge: Triston Silva MD Consults: none Primary SHREDDER PICKER: none Primary Care Provider: none Diagnoses at Discharge Discharge Diagnosis (1) S/P : Details from hospital stay: 33 y.o. no care presented to [facility] L&D c/o headaches and contractions patient was found to be approximately 37 weeks by ultrasound also noted to have significantly elevated BPs c/w severe preeclampsia MgSO4 was started patient has history of previous at 29 weeks for preeclampsia She was started on labor induction On January 08, 2024, approximately 1905, patient was c/o severe headache with elevated BPs Her cervical exam was long and closed, remote from delivery It was decided to proceed with for delivery At the time of repeat , a 6 cm uterine scar dehiscence was noted with bulging bag of water through the dehiscence baby was delivered in good condition patient had approximately 1,500 cc blood loss due to a bleeding venous sinus from the posterior uterine wall, repaired patient did well postoperatively She did have labile blood pressures treated with Procardia and metoprolol She was asymptomatic with no headaches, blurry vision or swelling patient was discharged on the third postoperative day. Status: Acute (2) Hypertension: Details from hospital stay: see above Status: Acute Reason for Visit Reason for Visit: No PNC, Uncomfortable Brief History: see above Hospital Course Hospital Course see above Information Peripartum Data: Infant Delivery Method: complications: none Additional Peripartum Information: elevated BPs, managed with antihypertensives Physical Exam Narrative: Comfortable, awake, alert, appropriate Afebrile BPs Lungs: clear Cor: RRR Abd: soft, nontender Wound healing well Ext: no edema Urinary Catheter Management: Nair Latex Free: Cath Placed During This Visit: yes, but has since been removed by the nurse Reason for Continuing Indwelling Catheter: Decision to DC Catheter Urinary Catheter Date of Insertion: 01/07/24 Urinary Catheter Time of Insertion: 03:20 Date Urinary Catheter Removed: 01/09/24 Time Urinary Catheter Discontinued: 21:57 Discharge Data Studies Completed and Pending Completed Studies During Hospitalization Category Date Time Status US OB limited [id number] Stat Ultrasound 01/07/24 01:18 Completed Radiology Impressions Obstetrics Ultrasound 01/07/24 01:18 IMPRESSION: Single full-term live IUP. No acute finding visualized. Laboratory Results WBC 8.11 10^3/uL (3.29-11.43) 01/09/24 20:10 RBC 3.07 10^6/uL (3.85-5.65) L 01/09/24 20:10 Hgb 9.70 g/dL (11.27-16.99) L 01/09/24 20:10 Hct 29.7 % (36-47) L 01/09/24 20:10 MCV 96.7 fl (85-98) 01/09/24 20:10 MCH 31.6 pg (27-33) 01/09/24 20:10 MCHC 32.7 g/dL (30-55) 01/09/24 20:10 RDW 15.2 % (12.1-15.1) H 01/09/24 20:10 Plt Count 152 10^3/cmm (157-399) L D 01/09/24 20:10 MPV 10.5 fL (7.4-10.4) H 01/09/24 20:10 Neut % (Auto) 78.0 % 01/09/24 20:10 Lymph % (Auto) 13.7 % 01/09/24 20:10 [place] % (Auto) 6.7 % 01/09/24 20:10 Eos % (Auto) 0.7 % 01/09/24 20:10 Baso % (Auto) 0.4 % 01/09/24 20:10 Neut # (Auto) 6.33 10^3/uL (1.8-7.7) 01/09/24 20:10 Lymph # (Auto) 1.1 10^3/uL (0.8-4.8) 01/09/24 20:10 [place] # (Auto) 0.5 10^3/uL (0.2-0.9) 01/09/24 20:10 Eos # (Auto) 0.1 10^3/uL (0.0-0.8) 01/09/24 20:10 Baso # (Auto) 0.0 10^3/uL (0.0-0.1) 01/09/24 20:10 Nucleated RBC % (auto) 0 % 01/09/24 20:10 Nucleated RBCs # 0.0 /100WBC 01/09/24 20:10 Sodium 135 mmol/L (136-145) L 01/07/24 01:39 Potassium 4.2 mmol/L (3.5-5.1) 01/07/24 01:39 Chloride 102 mmol/L (98-107) 01/07/24 01:39 Carbon Dioxide 21 mmol/L (22-29) L 01/07/24 01:39 Anion Gap 16.2 (5-19) 01/07/24 01:39 BUN 12 mg/dL (6-20) 01/07/24 01:39 Creatinine 0.7 mg/dL (0.5-0.9) 01/07/24 01:39 GFR Calculation 96.4 mL/min (90-130) 01/07/24 01:39 Glucose 83 mg/dL (65-115) 01/07/24 01:39 Calculated Osmolality 279 mOsm/kg (285-295) L 01/07/24 01:39 Uric Acid 5.5 mg/dL (2.4-5.7) 01/07/24 01:39 Calcium 10.3 mg/dL (8.5-10.5) 01/07/24 01:39 Magnesium Cancelled 01/08/24 17:30 Total Bilirubin 0.2 mg/dL (0.15-1.2) 01/07/24 01:39 AST 22 U/L (0-32) 01/07/24 01:39 ALT 13 U/L (0-33) 01/07/24 01:39 Alkaline Phosphatase 178 U/L (35-105) H 01/07/24 01:39 Total Protein 7.1 g/dL (6.6-8.7) 01/07/24 01:39 Albumin 3.3 g/dL (3.5-5.2) L 01/07/24 01:39 Globulin 3.8 g/dL (1.3-4.6) 01/07/24 01:39 Urine Color Yellow (Yellow) 01/07/24 01:39 Urine Appearance Clear (CLEAR) 01/07/24 01:39 Urine pH 7 (5-7) 01/07/24 01:39 Ur Specific [place] 1.000 (1.005-1.030) L 01/07/24 01:39 Urine Protein Neg (Negative) 01/07/24 01:39 Urine Glucose (UA) Norm (Normal) 01/07/24 01:39 Urine Ketones Negative (Negative) 01/07/24 01:39 Urine Blood Neg (Negative) 01/07/24 01:39 Urine Nitrate Negative (Negative) 01/07/24 01:39 Urine Bilirubin Neg (Negative) 01/07/24 01:39 Urine Urobilinogen Neg mg/dL (Negative) 01/07/24 01:39 Ur Leukocyte Esterase Negative (Negative) 01/07/24 01:39 U Random Total Protein 11 mg/dL 01/07/24 01:39 Urine Creatinine 34 mg/dL (28-217) 01/07/24 01:39 Protein/Creatinin Ratio 0.32 mg/mg CR 01/07/24 01:39 Urine Opiates Screen Negative ng/mL (Negative) 01/07/24 01:39 Ur Barbiturates Screen Negative ng/mL (Negative) 01/07/24 01:39 Ur Phencyclidine Scrn Negative ng/mL (Negative) 01/07/24 01:39 Ur Amphetamines Screen Negative ng/mL (Negative) 01/07/24 01:39 U Benzodiazepines Scrn Negative ng/mL (Negative) 01/07/24 01:39 Urine Cocaine Screen Negative ng/mL (Negative) 01/07/24 01:39 U Marijuana (THC) Screen Negative ng/mL (Negative) 01/07/24 01:39 RPR Reactive (Nonreactive) 01/07/24 04:32 RPR Titer/FTA 1:8 H 01/07/24 04:32 RPR w/Rflx to Titer Reactive (NON-REACTIVE) A 01/07/24 04:32 C.trachomatis RNA (TMA) Not detected (NOT DETECTED) 01/07/24 01:39 Chlamydia/GC Comment See note 01/07/24 01:39 Hep Bs Antigen Non-reactive (Nonreactive) 01/07/24 04:32 Hepatitis C Antibody Reactive (Nonreactive) H 01/07/24 04:32 HCV RNA (PCR) IUs/ml <1.18 not detected Log IU/mL (NOT DETECTED) 01/07/24 05:40 HCV RNA (PCR) IU log10 <15 not detected IU/mL (NOT DETECTED) 01/07/24 05:40 HIV 1&2 Ab & HIV 1 Ag Non-reactive (Non-Reactiv) 01/07/24 04:32 HIV 1&2 Antibody Non-reactive (Non-Reactiv) 01/07/24 04:32 N.gonorrhoeae RNA (TMA) Not detected (NOT DETECTED) 01/07/24 01:39 Rubella IgG Antibody 6.0 IU/mL (0.0-10.0) 01/07/24 04:32 Blood Type A Positive 01/07/24 01:58 Rho(D) Type Rh positive 01/07/24 01:58 Antibody Screen Negative 01/07/24 01:58 Procedures Performed management of severe preeclampsia repeat Vitals Last Vital Signs Temp 98.1 F 01/11/24 17:35 Pulse 110 H 01/11/24 17:35 Resp 16 01/11/24 17:35 BP 156/101 01/11/24 17:35 Pulse Ox 97 01/11/24 04:00 O2 Del Method Room Air 01/11/24 04:00 Results Labs OB ([facility]): Obstetrics US 01/07/24 Blood Type A Positive 01/07/24 Antibody Screen Negative 01/07/24 Hct 29.7 % (36-47) L 01/09/24 Hgb 9.70 g/dL (11.27-16.99) L 01/09/24 Rho(D) Type Rh positive 01/07/24 Plt Count 152 10^3/cmm (157-399) L 01/09/24 Hep Bs Antigen Non-reactive (Nonreactive) 01/07/24 Hepatitis C Antibody Reactive (Nonreactive) H 01/07/24 Rubella IgG Antibody 6.0 IU/mL (0.0-10.0) 01/07/24 RPR Reactive (Nonreactive) 01/07/24 HIV 1&2 Ab & HIV 1 Ag Non-reactive (Non-Reactiv) 01/07/24 C.trachomatis RNA (TMA) Not detected (NOT DETECTED) 01/07/24 N.gonorrhoeae RNA (TMA) Not detected (NOT DETECTED) 01/07/24 Chlamydia/GC Comment See note 01/07/24 Uric Acid 5.5 mg/dL (2.4-5.7) 01/07/24 Urine Opiates Screen Negative ng/mL (Negative) 01/07/24 Ur Barbiturates Screen Negative ng/mL (Negative) 01/07/24 Ur Phencyclidine Scrn Negative ng/mL (Negative) 01/07/24 Ur Amphetamines Screen Negative ng/mL (Negative) 01/07/24 U Benzodiazepines Scrn Negative ng/mL (Negative) 01/07/24 Urine Cocaine Screen Negative ng/mL (Negative) 01/07/24 U Marijuana (THC) Screen Negative ng/mL (Negative) 01/07/24 Discharge Plan Discharge Patient Disposition: Home Condition: Stable Prescriptions: New Procardia XL 30 mg tablet extended release 24hr 30 mg PO BID Qty: 60 2RF metoprolol tartrate 50 mg tablet 25 mg PO BID Qty: 60 2RF Continued 1 tab PO DAILY Discharge Orders: Discharge Order (Routine); Ordered 01/11/24 Ordered By: Triston Silva Referrals: Triston Silva MD [Physician] - 4-7 days (Return to see me in OB clinic January 16, 2024 at 1000 am) Discharge Diet: Usual diet Discharge Activity: Increase activity as tolerated Patient Instructions: Depression (DC), Opioid Safety (DC), Preeclampsia and Eclampsia After Delivery (GEN), Hemorrhage (DC), OB [facility], OB Discharge Report, OB Food/Drug Interaction Guide, Opioid Safety, OB Home Care, Abnormal Bleeding Discharge Attestations SHREDDER PICKER Time Spent in Discharge Care*: greater than 30 min Coding Level of Care Code Acute Code for Chg Fwd Diagnoses S/P Z98.891 Hypertension I10 Time Spent (min) 60
--- NOTE | 2024-01-11 18:07 | PC.NURSE ---
1735 PATIENT DISCHARGED BUT REMAINS A GUEST WITH HER BABY WHO IS STILL A PATIENT.
== END 2024-01-11 17:35 | disposition home or self-care (01) | DRG 787 ==
LOC: OPOB 05:52 → OBGYN 05:52
PROVIDERS: Obstetrics & Gynecology; Admitting Provider Obstetrics & Gynecology; Visit Provider Obstetrics & Gynecology
PROC: (CPT 59514; principal; 2024-01-08 20:20)
DX: O14.14 Severe pre-eclampsia complicating childbirth (principal); O98.42 Viral hepatitis complicating childbirth; O34.211 Maternal care for low transverse scar from previous cesarean delivery; N85.8 Other specified noninflammatory disorders of uterus; B19.20 Unspecified viral hepatitis C without hepatic coma; O90.1 Disruption of perineal obstetric wound; Z3A.37 37 weeks gestation of pregnancy; Z37.0 Single live birth; O09.33 Supervision of pregnancy with insufficient antenatal care, third trimester
CPT/HCPCS: 36415; 51702; 59025; 59409; 76815; 80053; 80306; 81003; 82570; 83735; 84156; 84550; 85025; 85027; 86592; 86762; 86803; 86850; 86900; 87340; 87491; 87522; 87591; 87806; 96372; 99211; J0290; J0561; J1885; J2274; J2405; J2590; J2765; J3010; J3475; J3490; J7121